=== PATIENT | female | born 1965 | race Hispanic/Latino ===

== ENCOUNTER 2021-06-11 08:44 | Outpatient (CLI) | payer BC ==
[2021-06-11 09:23] LABS: Basophils # (Auto) 0.1 K/mm3 (0.0-0.1); Basophils % (Auto) 0.8 % (0.0-1.8); Eosinophils # (Auto) 0.2 K/mm3 (0.0-0.4); Eosinophils % (Auto) 2.5 % (0.0-4.3); Hematocrit 42.7 % (30.3-42.9); Hemoglobin 14.4 gm/dl (10.1-14.3); Lymphocytes # (Auto) 2.1 K/mm3 (1.2-5.4); Lymphocytes % (Auto) 24.7 % (13.4-35.0); Mean Corpuscular HGB Conc 34 % (30-34); Mean Corpuscular Volume 94 fl (79-97); Monocytes # (Auto) 0.6 K/mm3 (0.0-0.8); Monocytes % (Auto) 7.3 % (0.0-7.3); Platelet Count 273 K/mm3 (140-440); Red Blood Count 4.55 M/mm3 (3.65-5.03); Red Cell Distribution Width 13.1 % (13.2-15.2)
[2021-06-11 09:45] LABS: Alanine Aminotransferase 9 units/L (7-56); Albumin 4.2 g/dL (3.9-5); Blood Urea Nitrogen 12 mg/dL (7-17); Calcium 8.8 mg/dL (8.4-10.2); Chol/HDL Ratio 3.39 %; HDL Cholesterol 46 mg/dL (40-59); Hemolysis Index 10; LDL Cholesterol,Direct 103 mg/dL (50-130)
[2021-06-11 09:46] LABS: BUN/Creatinine Ratio 17
[2021-06-15 13:03] LABS: Vitamin D, 25-OH, D2 <4 ng/mL
== END 2021-06-11 08:45 | disposition home or self-care (01) ==
LOC: LAB 08:44
PROVIDERS: ATTEND Internal Medicine
DX: Z13.220 Encounter for screening for lipoid disorders (principal); Z00.00 Encounter for general adult medical examination without abnormal findings; Z13.29 Encounter for screening for other suspected endocrine disorder; Z13.1 Encounter for screening for diabetes mellitus; E55.9 Vitamin D deficiency, unspecified
CPT/HCPCS: 36415; 80053; 80061; 82306; 83036; 84443; 85025

== ENCOUNTER 2022-03-31 12:59 | Outpatient (CLI) | payer BC ==
--- NOTE | 2022-03-31 16:11 | XRay Report ---
BILATERAL ANKLES 6 VIEWS BILATERAL FEET 6 VIEWS INDICATION: Bilateral foot and ankle pain. No recent injuries.. COMPARISON: No relevant prior imaging study available. FINDINGS: Right foot: No acute abnormality. Mild osteoarthrosis changes are noted at the IP joints and first MT P joint. 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 There is mild calcaneal enthesopa thy at the plantar fascia attachment. Left foot: No acute abnormality. Mild osteoarthrosis changes are noted. There is an accessory navicul ar (type I or type II). There is calcaneal enthesopathy at the plantar fascia attachment. Right ankle: Corticated ossific density adjacent to the tip of the medial malleolus may be chronic un united fracture fragment or heterotopic ossification. No acute fracture or dislocation. No significan t degenerative change. Left ankle: No acute skeletal abnormality. No significant degenerative changes. IMPRESSION: 1. No acute findings. Signer Name: Elie Aguila MD Signed: 03/31/2022 4:05 PM Workstation Name: [email or web address]
== END 2022-03-31 13:00 | disposition home or self-care (01) ==
LOC: XRAY 12:59
PROVIDERS: ATTEND Podiatrist Foot & Ankle Surgery
DX: M19.072 Primary osteoarthritis, left ankle and foot (principal); M19.071 Primary osteoarthritis, right ankle and foot; D49.2 Neoplasm of unspecified behavior of bone, soft tissue, and skin; D17.9 Benign lipomatous neoplasm, unspecified; M20.10 Hallux valgus (acquired), unspecified foot

== ENCOUNTER 2022-05-15 13:52 | Outpatient (CLI) | payer BC ==
--- NOTE | 2022-05-16 13:27 | Ultrasound Report ---
BILATERAL DIGITAL DIAGNOSTIC MAMMOGRAM WITH CAD CONVENTIONAL, 05/15/2022 LEFT LIMITED BREAST ULTRASOUND CLINICAL INFORMATION / INDICATION: Patient presents for evaluation of an area of palpable concern in the left breast. N63.4 LUMP TECHNIQUE: Digital bilateral mammographic imaging was performed. Spot compression views were obtained . Limited ultrasound was performed. This examination was interpreted with the benefit of Computer-Aid ed Detection (CAD) analysis. COMPARISON: None available FINDINGS: Breast Density: The breasts are heterogeneously dense, which may obscure small masses. MAMMOGRAPHIC FINDINGS: No dominant mass, suspicious calcifications, or architectural distortion in th e right breast. Corresponding with the site of palpable concern in the anterior subareolar left breas t, there is a masslike focal asymmetric density, measuring up to approximately 2 cm. There is associa crystal left nipple retraction. Targeted ultrasound was performed for further evaluation. ULTRASOUND FINDINGS: Targeted ultrasound evaluation was performed of the area of interest. Targeted ultrasound of the area of palpable concern in the 6:00 subareolar left breast reveals an irregular h ypoechoic mass, measuring up to 2.4 x 1.7 x 2.0 cm. Internal vascularity is demonstrated. Targeted ul trasound of the left axilla reveals a few morphologically normal lymph nodes with thin cortex and pre served lila. No suspicious lymphadenopathy identified. IMPRESSION: 1. An irregular hypoechoic mass accounts for the area of palpable concern in the subareolar left basil st and is highly suggestive of malignancy, ultrasound-guided biopsy is recommended. Follow up recommendation: Biopsy BI-RADS Category 5: HIGHLY SUGGESTIVE OF MALIGNANCY. A "normal" or negative report should not discourage follow up or biopsy of a clinically significant f inding. A written summary of these findings will be mailed to the patient. The patient will be entered into a mammography reporting system which will generate a reminder letter for the patient's next appointmen t at the appropriate interval. According to the [employer], yearly mammograms are recommended starting at age 40 and continuing as long as a woman is in good health. Breast MRI is recommended for women with an laura roximately 20-25% or greater lifetime risk of breast cancer, including women with a strong family his tory of breast or ovarian cancer and women who have been treated for Hodgkin's disease. Signer Name: Deborah Marcus MD Signed: 05/16/2022 1:23 PM Workstation Name: [employer]
== END 2022-05-15 13:53 | disposition home or self-care (01) ==
LOC: MAMMO 13:52
PROVIDERS: ATTEND Internal Medicine
DX: N63.23 Unspecified lump in the left breast, lower outer quadrant (principal); R92.8 Other abnormal and inconclusive findings on diagnostic imaging of breast
CPT/HCPCS: 77066

== ENCOUNTER 2022-05-22 09:11 | Outpatient (CLI) | payer BC ==
--- NOTE | 2022-05-22 13:20 | Ultrasound Report ---
ULTRASOUND GUIDED LEFT BREAST BIOPSY, 05/22/2022 CLINICAL INFORMATION / INDICATION: C50.012. Left breast mass COMPARISON: 05/15/2022. PROCEDURE: Risks, benefits, and indications to the procedure were discussed with the patient in detail, includin g bleeding, infection, hematoma formation, and inadequate tissue sampling. The patient agreed to proc eed with both verbal and written consent. A timeout procedure was performed with two patient identifi ers. The breast was prepped and draped in the usual sterile fashion. Lidocaine 1% with and without epineph rine were used for local anesthesia. Under direct ultrasound guidance, multiple 12-gauge core samples were obtained of the 2.4 x 2.1 x 1.6 cm hypoechoic retroareolar mass. A biopsy marker was then plac ed. Biopsy device was removed and hemostasis achieved with manual pressure. A sterile dressing was ap plied to the skin. The patient tolerated the procedure without difficulty. No complications were encountered. Postbiopsy instructions were discussed with the patient and given in writing. Specimens were sent to pathology. IMPRESSION: 1. Technically successful ultrasound guided left breast biopsy. Signer Name: Buddy Guillen Jr, MD Signed: 05/22/2022 1:16 PM Workstation Name: [id number]
--- NOTE | 2022-05-23 08:57 | Mammography Report ---
DIGITAL DIAGNOSTIC MAMMOGRAM CONVENTIONAL, 05/22/2022 CLINICAL INFORMATION / INDICATION: Postbiopsy mammogram following left breast ultrasound-guided biop sy. TECHNIQUE: Digital left mammographic imaging was performed. COMPARISON: Prior mammogram 05/15/2022 FINDINGS: Breast Density: The breasts are heterogeneously dense, which may obscure small masses. Postbiopsy mammogram demonstrates a biopsy clip appropriately positioned at site of previously descri bed mass in the anterior subareolar to 6:00 left breast. IMPRESSION: 1. Appropriately positioned biopsy clip following left breast ultrasound-guided biopsy. Follow up recommendation: No recall. Post biopsy imaging. A "normal" or negative report should not discourage follow up or biopsy of a clinically significant f inding. A written summary of these findings will be mailed to the patient. The patient will be entered into a mammography reporting system which will generate a reminder letter for the patient's next appointmen t at the appropriate interval. According to the [employer], yearly mammograms are recommended starting at age 40 and continuing as long as a woman is in good health. Breast MRI is recommended for women with an laura roximately 20-25% or greater lifetime risk of breast cancer, including women with a strong family his tory of breast or ovarian cancer and women who have been treated for Hodgkin's disease. Signer Name: Deborah Marcus MD Signed: 05/23/2022 8:53 AM Workstation Name: [id number]
== END 2022-05-22 09:12 | disposition home or self-care (01) ==
LOC: US 09:11
PROVIDERS: ATTEND Internal Medicine
DX: C50.012 Malignant neoplasm of nipple and areola, left female breast (principal); R92.8 Other abnormal and inconclusive findings on diagnostic imaging of breast; Z17.0 Estrogen receptor positive status [ER+]; Z91.013 Allergy to seafood; Z79.899 Other long term (current) drug therapy; Z88.8 Allergy status to other drugs, medicaments and biological substances
CPT/HCPCS: 88305; 88342

== ENCOUNTER 2022-05-27 11:09 | Outpatient (CLI) | payer BC ==
[2022-05-27 12:22] LABS: Alanine Aminotransferase 12 units/L (7-56); Albumin 4.9 g/dL (3.9-5); BUN/Creatinine Ratio 16; Blood Urea Nitrogen 13 mg/dL (7-17); Calcium 9.3 mg/dL (8.4-10.2); Hemolysis Index 6
== END 2022-05-27 11:10 | disposition home or self-care (01) ==
LOC: LABHHL 11:09
PROVIDERS: ATTEND Internal Medicine
DX: N92.5 Other specified irregular menstruation (principal)
CPT/HCPCS: 36415; 80053; 82670; 83001; 84146; 84443

== ENCOUNTER 2022-05-28 07:52 | Outpatient (CLI) | payer BC ==
--- NOTE | 2022-05-28 10:21 | Cat Scan Report ---
CT CHEST, ABDOMEN, AND PELVIS WITH CONTRAST INDICATION / CLINICAL INFORMATION: C50.012. Left breast mass TECHNIQUE: Axial CT images were obtained through the chest, abdomen, and pelvis after IV contrast. Al l CT scans at this location are performed using CT dose reduction for ALARA by means of automated exp osure control. COMPARISON: None available. FINDINGS: HEART: No significant abnormality. CORONARY ARTERY CALCIFICATION: Absent -- None. THORACIC AORTA: No significant abnormality. MEDIASTINUM / SRINIVASAN: No significant abnormality. PLEURA: No pleural effusion. No pneumothorax. LUNGS: No acute air space or interstitial disease. ADDITIONAL CHEST FINDINGS: Mild left axillary adenopathy with largest node measuring 11 mm short axis . Solid 2.4 cm mass within the central retroareolar portion of left breast LIVER: Multiple simple hepatic cysts. GALLBLADDER: No significant abnormality. BILE DUCTS: No significant abnormality. PANCREAS: No significant abnormality. SPLEEN: No significant abnormality. ADRENALS: No significant abnormality. RIGHT KIDNEY / URETER: No significant abnormality. LEFT KIDNEY / URETER: No significant abnormality. STOMACH and SMALL BOWEL: No significant abnormality. COLON: No significant abnormality. APPENDIX: Normal PERITONEUM: No free fluid. No free air. No fluid collection. LYMPH NODES: No significant adenopathy. AORTA / ARTERIES: No significant abnormality. IVC / VEINS: No significant abnormality. URINARY BLADDER: No significant abnormality. REPRODUCTIVE ORGANS: 2 left ovarian cysts measuring 4.1 and 3.2 cm. Bilateral tubal ligation clips. ADDITIONAL FINDINGS: None. SKELETAL SYSTEM: No significant abnormality. IMPRESSION: 1. 2.4 cm central left breast mass with mild left axillary adenopathy. 2. 2 left ovarian cysts measuring up to 4.1 cm Cysts >3 and 5 cm: Should be described in the imaging report with a statement that they are almost ce rtainly benign; do not need follow-up. Signer Name: Gildardo Harris MD Signed: 05/28/2022 10:16 AM Workstation Name: [email or web address]
== END 2022-05-28 07:53 | disposition home or self-care (01) ==
LOC: CT 07:52
PROVIDERS: ATTEND Internal Medicine
DX: C50.012 Malignant neoplasm of nipple and areola, left female breast (principal); N83.202 Unspecified ovarian cyst, left side; K76.89 Other specified diseases of liver; R59.0 Localized enlarged lymph nodes
CPT/HCPCS: 71260; 74177; Q9967

== ENCOUNTER 2022-06-03 07:54 | Outpatient (CLI) | payer BC ==
--- NOTE | 2022-06-03 14:30 | Magnetic Resonance Report ---
MRI BREAST BILATERAL WITH AND WITHOUT CONTRAST, 06/03/2022 CLINICAL INFORMATION / INDICATION: Patient presents for evaluation of extent of disease of recent bio psy proven left breast cancer. TECHNIQUE: Axial T1 and T2-weighted fat sat images were obtained precontrast. Gadolinium-based contra st was injected intravenously and serial axial T1 weighted images with fat saturation were obtained. 3-D MIP projections, kinetic analysis, and subtraction imaging were utilized to evaluate. A dedicated 8-channel breast coil was used for image acquisition. COMPARISON: Prior mammogram and left breast ultrasound 05/15/2022 FINDINGS: BREAST DENSITY: The breasts are heterogeneously dense, which may obscure small masses. BACKGROUND ENHANCEMENT: Moderate background enhancement within both breasts. RIGHT BREAST: No dominant mass or suspicious area of enhancement in the right breast. LEFT BREAST: Corresponding with the site of biopsy proven malignancy in the anterior subareolar left breast, there is an irregular enhancing mass just deep to the nipple with associated nipple retractio n, measuring up to approximately 2.5 x 2.4 x 3.7 cm. The mass is located 4.7 cm from the chest wall. No additional suspicious areas of enhancement identified in the left breast. AXILLAE: There are several enlarged left axillary lymph nodes with diffuse cortical thickening measur ing up to approximately 5 mm in thickness, worrisome for andra metastases. ADDITIONAL FINDINGS: Hepatic cysts are noted. Otherwise, limited imaging of the thorax and upper abdo men demonstrates no focal abnormality. IMPRESSION: 1. An irregular enhancing mass in the anterior subareolar left breast corresponds with the site of bi opsy proven malignancy. 2. Several enlarged left axillary lymph nodes are worrisome for andra metastases. 3. No suspicious MRI abnormality identified in the right breast. Follow up recommendation: Surgical consultation with Dr. Karimi is underway. BI-RADS Category 6: KNOWN BIOPSY-PROVEN MALIGNANCY. Signer Name: Deborah Marcus MD Signed: 06/03/2022 2:25 PM Workstation Name: [email or web address]
== END 2022-06-03 07:55 | disposition home or self-care (01) ==
LOC: SPVIMAG 07:54
PROVIDERS: ATTEND Surgery
DX: C50.512 Malignant neoplasm of lower-outer quadrant of left female breast (principal); R59.0 Localized enlarged lymph nodes; K76.89 Other specified diseases of liver; R92.8 Other abnormal and inconclusive findings on diagnostic imaging of breast; Z80.41 Family history of malignant neoplasm of ovary; Z68.31 Body mass index [BMI] 31.0-31.9, adult
CPT/HCPCS: A9575; C8908; 77049

== ENCOUNTER 2022-06-05 07:55 | Outpatient (CLI) | payer BC ==
--- NOTE | 2022-06-05 11:12 | Ultrasound Report ---
ULTRASOUND BIOPSY LYMPH NODE HISTORY: Left breast cancer. Suspicious left axillary lymph node on recent CT. COMPARISON: CT dated 04/28/2022. DESCRIPTION OF PROCEDURE: Informed consent was obtained. Sterile technique was utilized. Anesthetizat ion was accomplished with 1% lidocaine. Initial scan of the left axilla demonstrates a mildly promine nt left axillary lymph node measuring up to 1.4 x 0.9 cm on ultrasound. There is mild cortical thicke soto of the lymph node measuring up to 4.3 mm. This appears to represent the slightly enlarged lymph node seen on recent CT. Using ultrasound guidance, a 17-gauge introducer needle was advanced to the l eading edge of the lymph node. 3 separate 1.2 cm 18-gauge core biopsies were obtained and placed in f ormalin. A clip was also placed under ultrasound guidance. The patient tolerated procedure without di fficulty and left radiology in stable condition. IMPRESSION: Successful ultrasound-guided biopsy of the left axillary lymph node. Signer Name: Buddy Guillen Jr, MD Signed: 06/05/2022 11:07 AM Workstation Name: [id number]
== END 2022-06-05 07:56 | disposition home or self-care (01) ==
LOC: US 07:55
PROVIDERS: ATTEND Surgery
DX: C77.3 Secondary and unspecified malignant neoplasm of axilla and upper limb lymph nodes (principal); C50.912 Malignant neoplasm of unspecified site of left female breast; Z17.0 Estrogen receptor positive status [ER+]; Z91.013 Allergy to seafood; Z88.8 Allergy status to other drugs, medicaments and biological substances
CPT/HCPCS: 38505; 76942; 88305; 88342; 88368; A4648

== ENCOUNTER 2022-06-12 07:47 | Outpatient (CLI) | payer BC ==
--- NOTE | 2022-06-12 12:12 | PET Report ---
PET CT Indication: Breast cancer initial staging Technique: A total of 15.05 mCi F-18 FDG injected IV per protocol at approximately 8:10 AM on the day of exam with the scan time of 9:10 AM on the same day. CT was utilized for dose attenuation and chris omic localization. The scan occurred from the skull base to the upper thighs. Comparison: CT chest abdomen pelvis 05/28/2022 Findings: There is focal hypermetabolic uptake identified within the mid left breast, SUV max measuri ng 13.2. There are several mildly hypermetabolic nodes identified within the left axilla, SUV max maurice suring 3.1 concerning for local spread. No abnormal radiotracer uptake is identified within the head/ neck, chest, abdomen or pelvis. There is expected GI and excretion of radiotracer. No abnormal oss eous uptake is appreciated. IMPRESSION: Focal hypermetabolic mass within the left mid breast consistent with known primary breast cancer. There are also several suspicious hypermetabolic nodes within the left axilla concerning for andra metastatic spread. Signer Name: Victorino Mckeon MD Signed: 06/12/2022 12:07 PM Workstation Name: [id number]
== END 2022-06-12 07:48 | disposition home or self-care (01) ==
LOC: PET 07:47
PROVIDERS: ATTEND Internal Medicine
DX: C50.012 Malignant neoplasm of nipple and areola, left female breast (principal); N63.20 Unspecified lump in the left breast, unspecified quadrant
CPT/HCPCS: 78815; 82962; A9552

== ENCOUNTER 2022-06-16 08:51 | Outpatient (CLI) | payer BC | END 2022-06-16 08:52 | disposition home or self-care (01) | LOC: ECHO 08:51 | PROVIDERS: ATTEND Internal Medicine Hematology & Oncology | DX: Z51.11 Encounter for antineoplastic chemotherapy (principal); C50.112 Malignant neoplasm of central portion of left female breast; D70.9 Neutropenia, unspecified | CPT/HCPCS: 93306; C8929 ==